=== PATIENT | female | born 1990 | race Caucasian/White ===

== ENCOUNTER 2018-05-19 19:03 | Emergency (ER) | payer OTHER, SELFPAY ==
[~2018-05-19 19:03] MED LIST: ISOVUE-370 76%-LOCM 1 ML ONE
[2018-05-19] MEDS ORDERED: Ondansetron ODT 4 MG TAB ONE (19:50)
[2018-05-19] MEDS ORDERED: Famotidine 20 MG TAB ONE (19:50)
[2018-05-19 20:13] LABS: #Eosinphils 0.3 thou/uL (0.0-0.7); #Monocytes 0.8 thou/uL (0.11-0.59); #Neutrophils 11.6 thou/uL (1.40-6.50); %Basophils 0.2 % (0.0-1.0); %Eosinophils 2.1 % (0.0-10.0); %Lymphocytes 13.8 % (21.0-51.0); %Monocytes 5.4 % (0.0-10.0); %Neutrophils 78.5 % (42.0-75.0); Hemoglobin 14.7 g/dL (12.0-16.0); Mean Corpuscular HGB CONC 35.4 g/dL (32.0-36.0); Mean Corpuscular Hemoglobin 31.5 pg (27.0-31.0); Mean Platelet Volume 8.6 fL (7.4-10.4); Platelet Count 229 thou/uL (130-400); RBC Distribution Width 11.3 % (11.5-14.5); Red Blood Cell (RBC) Count 4.67 mill/uL (4.20-5.40); White Blood Cell (WBC) Count 14.8 thou/uL (4.8-10.8)
[2018-05-19 20:21] LABS: Bilirubin Negative (Negative); Blood, Urine Negative (Negative); Clarity CLEAR (Clear); Glucose, Urine (Dipstick) Negative (Negative); Leukocyte Trace (Negative); Nitrite Negative (Negative); Protein, Urine (Dipstick) Negative (Neg-Trace)
[2018-05-19 20:23] LABS: Bacteria/HPF Rare-Few HPF (None Seen); Hyaline Casts/LPF 0-3 HYALINE CAST LPF (0-3 Hyaline); Pathc Cast-AUWi Flag 0.29 (0-2.49); RBC/HPF 0-3 HPF (0-3)
[2018-05-19 20:25] LABS: Pregnancy Test - Urine (BHCG) Negative (Negative); Pregu Control Background? CLEAR/WHITE (CLR/WHITE); Pregu Control Bar Appear? YES (CONTROL BAR)
[2018-05-19 20:41] LABS: ALT (SGPT) 31 U/L (8-55); AST (SGOT) 40 U/L (5-34); Albumin 4.2 g/dL (3.5-5.0); Alkaline Phosphatase 100 U/L (40-150); Anion Gap 12 mmol/L (10-20); BUN (Urea Nitrogen) 8 mg/dL (7.0-18.7); Bilirubin, Total 0.5 mg/dL (0.2-1.2); Calc. Creatinine Clearance 0 mL/min (70-130); Calcium 9.2 mg/dL (7.8-10.44); Carbon Dioxide 23 mmol/L (22-29); Chloride 108 mmol/L (98-107); Estimated GFR-MDRD Greater than 90; Globulin 3.2 g/dL (2.4-3.5); Glucose 107 mg/dL (70-105); Lipase 224 U/L (8-78); Potassium 3.7 mmol/L (3.5-5.1); Protein, Total 7.4 g/dL (6.0-8.3); Sodium 139 mmol/L (136-145)
--- NOTE | 2018-05-19 21:57 | CT ---
CT ABDOMEN WITH CONTRAST CT PELVIS WITH CONTRAST: DATE: 05/19/2018 TIME: 9:06 p.m. HISTORY: A 27-year-old female with epigastric pain. TECHNIQUE: IV injection of iodinated contrast media: Administered. Oral contrast media: Not administered. FINDINGS: Liver: No focal solid mass. Spleen: No splenomegaly. Pancreas: No mass or surrounding fat stranding. Adrenals: No mass. Kidneys: No hydronephrosis or enhancement abnormalities. Ureters: No dilation. Bladder: No pathology identified. Abdominal aorta: No aneurysm. Small bowel: No dilation. Colon: No adjacent fat stranding. Appendix: No dilation or adjacent fat stranding. Free air: None. Free fluid: None. There are cholecystectomy clips in the gallbladder fossa. IMPRESSION: 1. No major pathology identified. 2. Status post cholecystectomy. rakan [] POS: YAS
== END 2018-05-19 23:40 | disposition home or self-care (01) ==
LOC: ERS 19:03
DX: R10.13 Epigastric pain (principal); K21.9 Gastro-esophageal reflux disease without esophagitis; G43.909 Migraine, unspecified, not intractable, without status migrainosus; Z79.899 Other long term (current) drug therapy
CPT/HCPCS: 74177; 80053; 81003; 81015; 81025; 83690; 85025; Q0162

== ENCOUNTER 2019-11-12 14:41 | Outpatient (CLI) | payer BC ==
--- NOTE | 2019-11-12 15:53 | ULT ---
ULTRASOUND RIGHT BREAST LIMITED: 11/12/19 HISTORY: 29-year-old female with multifocal regions of right breast pain. TECHNIQUE: Ultrasound of the entire right breast, except the retroareolar and axillary tail, was performed. FINDINGS: There is no solid or cystic lesion. No architectural distortion or suspicious shadowing. IMPRESSION: BIRADS 1: Negative Recommend routine baseline bilateral annual screening mammogram at age 40. POS: YAS
== END 2019-11-12 14:42 | disposition home or self-care (01) ==
LOC: BICULT 14:41
PROVIDERS: ATTEND Family Medicine
DX: N63.10 Unspecified lump in the right breast, unspecified quadrant (principal)

== ENCOUNTER 2021-03-08 08:24 | Outpatient (CLI) | payer BC | END 2021-03-08 08:25 | disposition home or self-care (01) | LOC: BICRAD 08:24 | PROVIDERS: ATTEND Family Medicine | DX: M25.562 Pain in left knee (principal) ==

== ENCOUNTER 2025-01-01 14:34 | Outpatient (CLI) | payer OTHER | END 2025-01-01 14:35 | disposition home or self-care (01) | LOC: BICMAMMO 14:34 | PROVIDERS: ATTEND Nurse Practitioner Family | DX: N64.4 Mastodynia (principal) | CPT/HCPCS: 77066; G0279 ==